=== PATIENT | female | born 1945 | race Caucasian/White ===

== ENCOUNTER 2018-03-28 11:04 | Emergency (ER) | payer OTHER ==
[2018-03-28 11:12] VITALS: BP 135/81; PULSE 70; TEMP 98.5; BMI 31.6
--- NOTE | 2018-03-28 11:22 | PDOC ---
History of Present Illness - General Chief Complaint: Bite Stated Complaint: CAT SCRATCH Time Seen by Provider: 03/28/18 11:12 - History of Present Illness Initial Comments: 03/28/18 11:35 Chief complaint: Cat scratch History of present illness: Patient was playing with her cat on Monday night, got scratched in the posterior right ankle. Blood was squirting from the puncture site but soon subsided. Today she has noted increased swelling around the puncture. However, she denies pain Review of systems: No fever/chills, pain with weightbearing, difficulty ambulating, or warmth of the extremity. In addition, there is no proximal pain or swelling and no distal numbness tingling pain or weakness Past medical history: On thyroid supplements. Otherwise no active medical problems including diabetes Social/family history reviewed and noncontributory Physical exam: Alert and oriented well-developed well-nourished no acute distress cheerful and cooperative Afebrile, vital signs normal Right ankle: There is a 1 mm healing puncture wound of the posterior ankle, mediolaterally. There is minimal tenderness and no warmth. However, there is mild edema and erythema surrounding the wound. There are no distal sensory or motor deficits. The findings do not extend to the foot or more proximally in the calf. Impression: Possible early wound infection due to cat scratch Plan: Warm compresses, rest and elevate, antibiotics. Close follow-up if no improvement one to 2 days. Fully ambulatory and in no pain or distress. Past History - Past Medical History Allergies/Adverse Reactions: Allergies Allergy/AdvReac Type Severity Reaction Status Date / Time codeine [Codeine] Allergy Mild Nausea Verified 03/28/18 11:05 Home Medications: Ambulatory Orders Levothyroxine [Synthroid -] 125 mcg PO DAILY 06/27/11 Amox-Tr/K Cl [Augmentin 875-125mg Tablet -] 1 tab PO BID #14 tablet 03/28/18 Anemia: Yes (MANY YEARS AGO) Asthma: No Cancer: Yes (CERVICAL) Cardiac Disorders: No CVA: No COPD: No CHF: No Dementia: No Diabetes: No GI Disorders: No Disorders: No HTN: No Hypercholesterolemia: Yes Liver Disease: No Seizures: No Thyroid Disease: Yes (HYPOTHYROIDISM) - Surgical History Abdominal Surgery: Yes (TOTAL RADICAL HYSTERECTOMY) Appendectomy: Yes Cardiac Surgery: No Cholecystectomy: Yes Lung Surgery: No Neurologic Surgery: No Orthopedic Surgery: No - Suicide/Smoking/Psychosocial Hx Smoking History: Current every day smoker Have you smoked in the past 12 months: Yes Number of Cigarettes Smoked Daily: 20 Information on smoking cessation initiated: Yes 'Breaking Loose' booklet given: 03/28/18 Hx Alcohol Use: No Drug/Substance Use Hx: No Substance Use Type: None Hx Substance Use Treatment: No *Physical Exam - Vital Signs Last Vital Signs Temp Pulse Resp BP Pulse Ox 98.5 F 70 18 135/81 100 03/28/18 11:05 03/28/18 11:05 03/28/18 11:05 03/28/18 11:05 03/28/18 11:05 *DC/Admit/Observation/Transfer Diagnosis at time of Disposition: Puncture wound - Discharge Dispostion Disposition: HOME Condition at time of disposition: Stable Decision to Admit order: No - Prescriptions Prescriptions: Amox-Tr/K Cl [Augmentin 875-125mg Tablet -] 1 tab PO BID #14 tablet - Referrals - Patient Instructions Printed Discharge Instructions: How to Care for a Domestic Animal Bite Additional Instructions: Rest and elevate the leg for several days until improvement. Limited standing and walking. Warm compresses and antibiotic as directed. Recheck in 24-48 hours if worse. Otherwise follow-up in one week with primary physician. - Post Discharge Activity
== END 2018-03-28 11:41 | disposition home or self-care (01) ==
LOC: FER 11:04
DX: S91.031A Puncture wound without foreign body, right ankle, initial encounter (principal); W55.01XA Bitten by cat, initial encounter; Y93.89 Activity, other specified; Y92.89 Other specified places as the place of occurrence of the external cause; E07.9 Disorder of thyroid, unspecified; Z85.41 Personal history of malignant neoplasm of cervix uteri; F17.210 Nicotine dependence, cigarettes, uncomplicated; E78.00 Pure hypercholesterolemia, unspecified; E03.9 Hypothyroidism, unspecified
CPT/HCPCS: 99281-25

== ENCOUNTER 2021-11-04 14:34 | Emergency (ER) | payer OTHER ==
[2021-11-04] MEDS ORDERED: LIDOCAINE VISCOUS 2% ORAL/TOP 15 ML UNIT-DOSE CUP MM ONE (15:20)
[2021-11-04 15:47] VITALS: BP 129/67; PULSE 82; TEMP 99.8; BMI 31.8
[2021-11-04] MEDS ORDERED: LIDOCAINE VISCOUS 2% ORAL/TOP 15 ML UNIT-DOSE CUP ONE (15:47)
[2021-11-04 17:22] LABS: HEMATOCRIT 37.1 % (32.4-45.2); HEMOGLOBIN 13.1 G/dL (10.7-15.3); MCH 32.1 pg (25.7-33.7); MCHC 35.3 g/dl (32.0-36.0); MEAN CELL VOLUME 91.1 fl (80-96); MEAN PLT VOLUME 8.7 fl (7.5-11.1); RBC 4.07 10^6/uL (3.60-5.2); WHITE BLOOD COUNT 6.2 10^3/uL (4.0-10.8)
[2021-11-04 17:37] LABS: ALBUMIN 3.7 g/dl (3.4-5.0); BILIRUBIN,TOTAL 0.7 mg/dl (0.2-1); CREATININE 0.7 mg/dl (0.55-1.3); TOT PROT 6.7 g/dl (6.4-8.2)
[2021-11-04 17:58] LABS: PLATELET ESTIMATE ADEQUATE
[2021-11-04] MEDS ORDERED: ALBUTEROL SO4 2.5/IPRATROPIUM 0.5 INH SOL 3 ML VIAL.NEB. NEB SCH (18:30)
[2021-11-04] MEDS ORDERED: ALBUTEROL SO4 2.5/IPRATROPIUM 0.5 INH SOL 3 ML VIAL.NEB. NEB ONE ×2 (18:52→19:28)
[2021-11-04] MEDS ORDERED: OSELTAMIVIR PHOSPHATE 75 MG CAPSULE PO ONE (20:43)
[2021-11-04] MEDS ORDERED: OSELTAMIVIR PHOSPHATE 75 MG CAPSULE ONE (20:44)
== END 2021-11-04 20:49 | disposition home or self-care (01) ==
LOC: FER 14:34
PROC: 3E0F7GC Introduction of Other Therapeutic Substance into Respiratory Tract, Via Natural or Artificial Opening (ICD-10-PCS; principal; 2021-11-04)
DX: J09.X2 Influenza due to identified novel influenza A virus with other respiratory manifestations (principal)
CPT/HCPCS: 0241U-QW; 36415; 71046-TC-FY; 80053; 84484; 85025; 93005; 99285-25

== ENCOUNTER 2023-09-24 15:52 | Emergency (ER) | payer OTHER ==
[2023-09-24] MEDS ORDERED: IBUPROFEN 400 MG TABLET (FP) PO ONE (16:10)
[2023-09-24] MEDS: IBUPROFEN 400 MG TABLET (FP) PO ONE (16:12)
[2023-09-24 16:15] VITALS: BP 140/67; PULSE 72; RESP 19; TEMP 99.5; BMI 30.1
== END 2023-09-24 17:23 | disposition home or self-care (01) ==
LOC: FER 15:52
DX: M25.561 Pain in right knee (principal); S89.91XA Unspecified injury of right lower leg, initial encounter; X50.1XXA Overexertion from prolonged static or awkward postures, initial encounter; Y93.E1 Activity, personal bathing and showering
CPT/HCPCS: 73562-TC-RT-FY; 99283-25

== ENCOUNTER 2023-11-27 20:48 | Emergency (ER) | payer OTHER ==
[2023-11-27 20:52] VITALS: BP 157/80; PULSE 95; RESP 18; TEMP 98.5; BMI 30.1
[2023-11-27 21:55] LABS: BASO % 0.4 % (0-2.0); EOS % 0.2 % (0-4.5); HEMATOCRIT 41.2 % (32.4-45.2); HEMOGLOBIN 13.8 GM/dL (10.7-15.3); LYMPH % 17.9 % (8-40); MCH 31.1 pg (25.7-33.7); MCHC 33.6 g/dl (32.0-36.0); MEAN CELL VOLUME 92.7 fl (80-96); MONO % 6.7 % (3.8-10.2); NEUT % 74.8 % (42.8-82.8); PLATELET COUNT 255 10^3/uL (134-434); RBC 4.44 M/mm3 (3.60-5.2); RDW 13.8 % (11.6-15.6); WHITE BLOOD COUNT 11.7 K/mm3 (4.0-10.0)
[2023-11-27 22:10] LABS: POTASSIUM 4.8 mmol/L (3.5-5.1)
[2023-11-27 22:13] LABS: ALBUMIN 3.6 g/dl (3.4-5.0); BLOOD UREA NITROGEN 21.7 mg/dL (7-18); CALCIUM 9.1 mg/dL (8.5-10.1)
[2023-11-27 22:16] LABS: CREATININE 0.9 mg/dL (0.55-1.3)
[2023-11-27 22:17] LABS: TOT PROT 7.1 g/dl (6.4-8.2)
[2023-11-27 22:18] LABS: BILIRUBIN,TOTAL 0.8 mg/dL (0.2-1)
[2023-11-27 22:34] LABS: INR 0.98 (0.83-1.09); PROTHROMBIN TIME (PATIENT) 11.3 SEC (9.7-13.0)
[2023-11-27 22:35] LABS: ACTIVATED PTT 30.4 SECONDS (25.2-36.5)
[2023-11-28 01:46] LABS: EPI CELLS 12 /uL (0-25.1); HYALINE CASTS 1 /uL (0-3.1); PH,URINE 5.5 (5.0-8.0); URINE APPEARANCE CLEAR; URINE BACTERIA 70 /uL (0-1359); URINE BILIRUBIN NEGATIVE (NEGATIVE); URINE COLOR YELLOW; URINE GLUCOSE (UA) NEGATIVE (NEGATIVE); URINE KETONE NEGATIVE (NEGATIVE); URINE LEUK ESTERASE NEGATIVE (NEGATIVE); URINE NITRITE NEGATIVE (NEGATIVE); URINE PROTEIN NEGATIVE (NEGATIVE); URINE RBC 19 /uL (0-23.9); URINE UROBILINOGEN 0.2 mg/dL (0.2-1.0); URINE WBC 22 /uL (0-25.8)
[2023-11-28] MEDS ORDERED: ACETAMINOPHEN 325 MG TABLET (FP) ONE (02:09)
[2023-11-28] MEDS: ACETAMINOPHEN 325 MG TABLET (FP) PO ONE (02:20)
== END 2023-11-28 02:24 | disposition home or self-care (01) ==
LOC: JER 20:48
DX: K62.5 Hemorrhage of anus and rectum (principal); R42 Dizziness and giddiness; R00.2 Palpitations; R10.9 Unspecified abdominal pain; G89.29 Other chronic pain; K64.4 Residual hemorrhoidal skin tags
CPT/HCPCS: 36415; 74177-TC; 80053; 81003; 82272; 83605; 83690; 84484; 85025; 85610; 85730; 86850; 86900; 86901; 87077; 87086; 93005; 93010; 99285-25

== ENCOUNTER 2024-01-25 04:32 | Day surgery (SDC) | payer OTHER ==
[2024-01-24 10:01] VITALS: BMI 29.9
[2024-01-25 09:14] VITALS: TEMP 97.6
[2024-01-25 11:32] VITALS: BP 131/76; PULSE 69; RESP 18
== END 2024-01-25 10:27 | disposition home or self-care (01) ==
LOC: JASU-ENDO 04:32
PROVIDERS: ATTEND Internal Medicine Gastroenterology
PROC: 0DJD8ZZ Inspection of Lower Intestinal Tract, Via Natural or Artificial Opening Endoscopic (ICD-10-PCS; principal; 2024-01-25 08:00)
DX: K57.30 Diverticulosis of large intestine without perforation or abscess without bleeding (principal); K64.8 Other hemorrhoids

== ENCOUNTER 2024-01-26 03:53 | Inpatient (IN) | payer OTHER ==
[2024-01-26] MEDS ORDERED: ACETAMINOPHEN INJECTION 100 ML IVPB ONE (04:13)
[2024-01-26] MEDS ORDERED: ONDANSETRON 4 MG/2 ML VIAL ONE (04:14)
[2024-01-26] MEDS ORDERED: FAMOTIDINE 20 MG/50 ML IVPB 20 MG/50 ML MG IVPB ONE (04:20)
[2024-01-26] MEDS: ACETAMINOPHEN 1000 MG/100 ML BAG IVPB ONE (04:26)
[2024-01-26] MEDS: SODIUM CHLORIDE 0.9% 500 ML INFUS.BAG IV ONE ×2 (04:26→06:29)
[2024-01-26] MEDS: FAMOTIDINE 20 MG/50 ML IVPB 20 MG/50 ML MG IVPB ONE (04:27)
[2024-01-26] MEDS: ONDANSETRON 4 MG/2 ML VIAL IVPUSH ONE (04:27)
[2024-01-26 05:16] LABS: INR 1.03 (0.83-1.09); PROTHROMBIN TIME (PATIENT) 11.6 SEC (9.7-13.0)
[2024-01-26 05:17] LABS: BASO % 0.1 % (0-2.0); HEMATOCRIT 39.5 % (32.4-45.2); HEMOGLOBIN 13.5 GM/dL (10.7-15.3); LYMPH % 8.5 % (8-40); MCH 31.8 pg (25.7-33.7); MCHC 34.2 g/dl (32.0-36.0); MEAN CELL VOLUME 93.1 fl (80-96); MONO % 3.1 % (3.8-10.2); NEUT % 88.3 % (42.8-82.8); PLATELET COUNT 274 10^3/uL (134-434); RBC 4.24 M/mm3 (3.60-5.2); RDW 13.7 % (11.6-15.6); WHITE BLOOD COUNT 14.5 K/mm3 (4.0-10.0)
[2024-01-26 05:18] LABS: ACTIVATED PTT 30.7 SECONDS (25.2-36.5)
[2024-01-26] MEDS ORDERED: MORPHINE SULFATE 2 MG/ML SYRINGE ONE ×2 (05:23→07:44)
[2024-01-26] MEDS: morphine CARPU-JECT 4 MG/1 ML DISP.SYRIN IVPUSH ONE (05:26)
[2024-01-26 05:27] LABS: LACTIC ACID 3.4 mmol/L (0.4-2.0)
[2024-01-26 05:29] LABS: POTASSIUM 4.1 mmol/L (3.5-5.1)
[2024-01-26 05:30] LABS: ALBUMIN 4.3 g/dl (3.4-5.0); BLOOD UREA NITROGEN 14.9 mg/dL (7-18); CALCIUM 9.8 mg/dL (8.5-10.1)
[2024-01-26 05:33] LABS: CREATININE 0.8 mg/dL (0.55-1.3)
[2024-01-26 05:36] LABS: TOT PROT 7.8 g/dl (6.4-8.2)
[2024-01-26] MEDS: morphine CARPU-JECT 2 MG/1 ML DISP.SYRIN IVPUSH ONE (07:47)
[2024-01-26] MEDS ORDERED: PIPERACILLIN/TAZOB 4.5 GM 4.5 GM/100 ML BAG IVPB ONE (10:24)
[2024-01-26] MEDS: PIPERACILLIN/TAZOB 4.5 GM 4.5 GM in DEXTROSE 5%-WATER 100 ML IVPB ONE (10:32)
[2024-01-26] MEDS ORDERED: PANTOPRAZOLE SODIUM 40 MG VIAL ONE (11:02)
[2024-01-26] MEDS: PANTOPRAZOLE SODIUM 40 MG VIAL IVPUSH ONE (11:11)
[2024-01-26] MEDS: ONDANSETRON 4 MG/2 ML VIAL IVPUSH PRN (14:56)
[2024-01-26] MEDS: ALBUTEROL SO4 HFA INHALER IH PRN (14:57)
[2024-01-26] MEDS: LACTATED RINGERS SOLUTION 1,000 ML/1,000 ML INFUS.BAG IV SCH (14:57)
[2024-01-26] MEDS: MAGNESIUM 1GM/D5W 100ML - 100 ML IVPB IVPB ONE (14:57)
[2024-01-26] MEDS: PANTOPRAZOLE SODIUM 80 MG in SODIUM CHLORIDE 100 ML IVPB SCH (14:59)
[2024-01-26] MEDS: PIPERACILLIN/TAZOB 4.5 GM 4.5 GM in DEXTROSE 5%-WATER 100 ML IVPB SCH (16:58)
[2024-01-26 19:28] LABS: EPI CELLS 2 /uL (0-25.1); HYALINE CASTS 1 /uL (0-3.1); PH,URINE 6.5 (5.0-8.0); URINE APPEARANCE CLEAR; URINE BACTERIA 58 /uL (0-1359); URINE BILIRUBIN NEGATIVE (NEGATIVE); URINE COLOR YELLOW; URINE GLUCOSE (UA) NEGATIVE (NEGATIVE); URINE KETONE TRACE (NEGATIVE); URINE LEUK ESTERASE NEGATIVE (NEGATIVE); URINE NITRITE NEGATIVE (NEGATIVE); URINE PROTEIN TRACE (NEGATIVE); URINE RBC 1 /uL (0-23.9); URINE UROBILINOGEN 0.2 mg/dL (0.2-1.0); URINE WBC 0 /uL (0-25.8)
[2024-01-26] MEDS ORDERED: PIPERACILLIN/TAZOB 4.5 GM 4.5 GM in DEXTROSE 5%-WATER 100 ML IVPB SCH (21:00)
[2024-01-26] MEDS ORDERED: PANTOPRAZOLE SODIUM 40 MG VIAL IVPUSH SCH (22:00)
[2024-01-26] MEDS ORDERED: PANTOPRAZOLE SODIUM 80 MG in SODIUM CHLORIDE 100 ML IVPB SCH (22:45)
[2024-01-26] MEDS: PANTOPRAZOLE SODIUM 160 MG in SODIUM CHLORIDE 290 ML IVPB SCH (22:57)
[2024-01-26] MEDS: ZOLPIDEM TARTRATE 5 MG TABLET PO PRN (22:57)
[2024-01-27] MEDS: LEVOTHYROXINE NA 112 MCG TABLET (FP) PO SCH (06:16)
[2024-01-27 08:39] LABS: BASO % 0.5 % (0-2.0); EOS % 0.4 % (0-4.5); HEMATOCRIT 32.4 % (32.4-45.2); HEMOGLOBIN 10.8 GM/dL (10.7-15.3); LYMPH % 12.5 % (8-40); MCH 31.2 pg (25.7-33.7); MCHC 33.5 g/dl (32.0-36.0); MEAN CELL VOLUME 93.3 fl (80-96); MEAN PLT VOLUME 8.3 fl (7.5-11.1); MONO % 6.7 % (3.8-10.2); NEUT % 79.9 % (42.8-82.8); PLATELET COUNT 188 10^3/uL (134-434); RBC 3.47 M/mm3 (3.60-5.2); RDW 13.5 % (11.6-15.6); WHITE BLOOD COUNT 11.7 K/mm3 (4.0-10.0)
[2024-01-27 09:01] LABS: POTASSIUM 3.4 mmol/L (3.5-5.1)
[2024-01-27 09:06] LABS: CALCIUM 8.7 mg/dL (8.5-10.1)
[2024-01-27 09:07] LABS: BLOOD UREA NITROGEN 13.4 mg/dL (7-18); MAGNESIUM 2.1 mg/dL (1.8-2.4)
[2024-01-27 09:08] LABS: ALBUMIN 2.9 g/dl (3.4-5.0)
[2024-01-27 09:10] LABS: CREATININE 0.7 mg/dL (0.55-1.3); PHOSPHOROUS 2.6 mg/dL (2.5-4.9)
[2024-01-27 09:12] LABS: BILIRUBIN,TOTAL 1.5 mg/dL (0.2-1)
[2024-01-27 09:14] LABS: TOT PROT 5.5 g/dl (6.4-8.2)
[2024-01-27] MEDS ORDERED: ACETAMINOPHEN 1000 MG/100 ML BAG IVPB PRN (12:52)
[2024-01-27] MEDS: PIPERACILLIN/TAZOB 3.375 GM 3.375 GM in DEXTROSE 5%-WATER - 50 ML IVPB SCH (17:26)
[2024-01-27] MEDS: SUCRALFATE 1 GM/10 ML UNIT DOSE CUPS PO SCH (17:27)
[2024-01-28] MEDS: LEVOTHYROXINE NA 112 MCG TABLET (FP) PO SCH (06:08)
[2024-01-28] MEDS: POTASSIUM CHLORIDE TABS 20 MEQ TABLET.ER (FP) PO ONE (09:38)
[2024-01-28] MEDS: PANTOPRAZOLE 40 MG TABLET PO SCH (12:43)
[2024-01-28 13:03] LABS: BASO % 0.7 % (0-2.0); EOS % 1.4 % (0-4.5); HEMATOCRIT 35.1 % (32.4-45.2); HEMOGLOBIN 12.1 GM/dL (10.7-15.3); LYMPH % 17.8 % (8-40); MCH 31.8 pg (25.7-33.7); MCHC 34.4 g/dl (32.0-36.0); MEAN CELL VOLUME 92.4 fl (80-96); MEAN PLT VOLUME 8.6 fl (7.5-11.1); MONO % 7.2 % (3.8-10.2); NEUT % 72.9 % (42.8-82.8); PLATELET COUNT 201 10^3/uL (134-434); RDW 13.4 % (11.6-15.6); WHITE BLOOD COUNT 9.7 K/mm3 (4.0-10.0)
[2024-01-28 13:10] VITALS: BMI 24.7
[2024-01-28 13:23] LABS: POTASSIUM 3.6 mmol/L (3.5-5.1)
[2024-01-28 13:25] LABS: CALCIUM 8.7 mg/dL (8.5-10.1)
[2024-01-28 13:26] LABS: ALBUMIN 3.2 g/dl (3.4-5.0); BLOOD UREA NITROGEN 9.6 mg/dL (7-18)
[2024-01-28 13:29] LABS: CREATININE 0.8 mg/dL (0.55-1.3)
[2024-01-28 13:30] LABS: BILIRUBIN,TOTAL 1.6 mg/dL (0.2-1)
[2024-01-28] MEDS: NITROGLYCERIN 2% OINTMENT - 1GM PACKET TD SCH (17:34)
[2024-01-28] MEDS ORDERED: NITROGLYCERIN 2% OINTMENT - 1GM PACKET TD SCH (18:00)
[2024-01-29] MEDS: PIPERACILLIN/TAZOB 3.375 GM 3.375 GM in DEXTROSE 5%-WATER - 50 ML IVPB ONE (01:26)
[2024-01-29 08:18] LABS: HEMATOCRIT 37.3 % (32.4-45.2); HEMOGLOBIN 12.9 GM/dL (10.7-15.3); MCH 31.7 pg (25.7-33.7); MCHC 34.4 g/dl (32.0-36.0); MEAN CELL VOLUME 92.1 fl (80-96); MEAN PLT VOLUME 8.6 fl (7.5-11.1); PLATELET COUNT 215 10^3/uL (134-434); RBC 4.05 M/mm3 (3.60-5.2); RDW 13.6 % (11.6-15.6); WHITE BLOOD COUNT 8.8 K/mm3 (4.0-10.0)
[2024-01-29 08:28] LABS: POTASSIUM 3.6 mmol/L (3.5-5.1)
[2024-01-29 08:31] LABS: CALCIUM 8.8 mg/dL (8.5-10.1)
[2024-01-29 08:32] LABS: MAGNESIUM 1.8 mg/dL (1.8-2.4)
[2024-01-29 08:35] LABS: CREATININE 0.7 mg/dL (0.55-1.3); PHOSPHOROUS 2.3 mg/dL (2.5-4.9)
[2024-01-29] MEDS: PIPERACILLIN/TAZOB 3.375 GM 3.375 GM in DEXTROSE 5%-WATER - 50 ML IVPB SCH (09:31)
[2024-01-29] MEDS ORDERED: FUROSEMIDE 40 MG/4 ML INJECTABLE VIAL IVPUSH ONE (11:15)
[2024-01-29] MEDS: FUROSEMIDE 40 MG/4 ML INJECTABLE VIAL IVPUSH SCH (11:52)
[2024-01-30 07:43] LABS: HEMATOCRIT 39.4 % (32.4-45.2); HEMOGLOBIN 13.4 GM/dL (10.7-15.3); MCH 31.4 pg (25.7-33.7); MEAN CELL VOLUME 92.2 fl (80-96); MEAN PLT VOLUME 8.3 fl (7.5-11.1); PLATELET COUNT 226 10^3/uL (134-434); RBC 4.28 M/mm3 (3.60-5.2); RDW 13.4 % (11.6-15.6)
[2024-01-30 08:27] LABS: POTASSIUM 3.4 mmol/L (3.5-5.1)
[2024-01-30 08:44] LABS: BLOOD UREA NITROGEN 7.7 mg/dL (7-18); CALCIUM 9.2 mg/dL (8.5-10.1); MAGNESIUM 1.8 mg/dL (1.8-2.4)
[2024-01-30 08:47] LABS: CREATININE 0.7 mg/dL (0.55-1.3); PHOSPHOROUS 3.1 mg/dL (2.5-4.9)
[2024-01-30] MEDS: POTASSIUM CHLORIDE TABS 20 MEQ TABLET.ER (FP) PO ONE (09:47)
[2024-01-30] MEDS: ACETAMINOPHEN 1000 MG/100 ML BAG IVPB ONE (16:03)
[2024-01-30] MEDS: MAG HYDROX/AL HYDROX/SIMETH 30 ML UNIT-DOSE CUP PO ONE (18:25)
[2024-01-31 01:59] VITALS: RESP 18
[2024-01-31 09:18] LABS: HEMATOCRIT 37.8 % (32.4-45.2); HEMOGLOBIN 12.9 GM/dL (10.7-15.3); MCH 31.4 pg (25.7-33.7); MCHC 34.2 g/dl (32.0-36.0); MEAN CELL VOLUME 91.8 fl (80-96); MEAN PLT VOLUME 8.4 fl (7.5-11.1); PLATELET COUNT 235 10^3/uL (134-434); RBC 4.11 M/mm3 (3.60-5.2); RDW 13.3 % (11.6-15.6)
[2024-01-31 09:33] LABS: POTASSIUM 3.4 mmol/L (3.5-5.1)
[2024-01-31 09:38] LABS: BLOOD UREA NITROGEN 9.1 mg/dL (7-18); CALCIUM 9.4 mg/dL (8.5-10.1); MAGNESIUM 1.9 mg/dL (1.8-2.4)
[2024-01-31 09:41] LABS: CREATININE 0.7 mg/dL (0.55-1.3); PHOSPHOROUS 2.8 mg/dL (2.5-4.9)
[2024-01-31 15:10] VITALS: BP 119/64; PULSE 75; TEMP 99.1
== END 2024-01-31 16:37 | disposition home or self-care (01) | DRG 392 ==
LOC: JER 03:53 → JERBED 10:12 → J4S 13:36 → OBSVTOIN 01-27 12:54
PROVIDERS: ADMIT Internal Medicine; ATTEND Internal Medicine
PROC: 0DB68ZX Excision of Stomach, Via Natural or Artificial Opening Endoscopic, Diagnostic (ICD-10-PCS; principal; 2024-01-26 11:30)
DX: K20.90 Esophagitis, unspecified without bleeding (principal); J98.11 Atelectasis; K57.30 Diverticulosis of large intestine without perforation or abscess without bleeding; I10 Essential (primary) hypertension; J44.9 Chronic obstructive pulmonary disease, unspecified; E03.9 Hypothyroidism, unspecified; E78.5 Hyperlipidemia, unspecified; R09.02 Hypoxemia; K44.9 Diaphragmatic hernia without obstruction or gangrene; K29.70 Gastritis, unspecified, without bleeding; R10.13 Epigastric pain; M25.561 Pain in right knee; N28.1 Cyst of kidney, acquired; E87.6 Hypokalemia; G47.00 Insomnia, unspecified; D72.829 Elevated white blood cell count, unspecified; Z87.11 Personal history of peptic ulcer disease; Z85.41 Personal history of malignant neoplasm of cervix uteri
CPT/HCPCS: 36415; 71045-TC-FY; 74177-TC; 80048; 80053; 81003; 82550; 83605; 83690; 83735; 84100; 84484; 85025; 85027; 85610; 85730; 86850; 86900; 86901; 87635; 88305-TC; 88342-TC; 93005; 93010; 94010; 94761; 97116-GP; 97161-GP; 99285-25; G0378; J0131

== ENCOUNTER 2024-03-13 17:20 | Emergency (ER) | payer OTHER ==
[2024-03-13 17:26] VITALS: BP 119/68; PULSE 72; RESP 16; TEMP 98.6; BMI 27.6
[2024-03-13] MEDS ORDERED: ACETAMINOPHEN 500 MG TABLET (FP) ONE (17:58)
[2024-03-13] MEDS: ACETAMINOPHEN 500 MG TABLET (FP) PO ONE (18:00)
[2024-03-13] MEDS ORDERED: LIDOCAINE 5% TOPICAL PATCH ONE (18:30)
[2024-03-13] MEDS: LIDOCAINE 5% TOPICAL PATCH TP ONE (18:33)
[2024-03-13] MEDS ORDERED: LIDOCAINE PATCH REMOVAL MC SCH (22:00)
== END 2024-03-13 18:59 | disposition home or self-care (01) ==
LOC: FER 17:20
DX: M17.11 Unilateral primary osteoarthritis, right knee (principal)
CPT/HCPCS: 73562-TC-RT-FY; 99283-25

== ENCOUNTER 2024-04-16 06:15 | Inpatient (IN) | payer OTHER ==
[2024-04-15 11:48] VITALS: BMI 28.8
[2024-04-16] MEDS ORDERED: VANCOMYCIN 1,000 MG VIAL (RESTRICTED TO ID ONLY) ONE (07:16)
[2024-04-16] MEDS ORDERED: BUPIVACAINE HCL/PF 0.5% (5 MG/ML) 30 ML VIAL IJ ONE (07:36)
[2024-04-16] MEDS ORDERED: MIDAZOLAM HCL 2 MG/2 ML SINGLE DOSE VIAL ONE ×2 (07:36→08:04)
[2024-04-16] MEDS ORDERED: DEXAMETHASONE SOD PHOSPHATE 10 MG/1 ML VIAL ONE (07:36)
[2024-04-16] MEDS ORDERED: BUPIVACAINE HCL/PF 0.5% (5MG/ML) 10 ML VIAL ONE (07:37)
[2024-04-16] MEDS ORDERED: MAG HYDROX/AL HYDROX/SIMETH 30 ML UNIT-DOSE CUP PO PRN (07:51)
[2024-04-16] MEDS ORDERED: PHENYLEPHRINE HCL 10 MG/1 ML SINGLE DOSE VIAL ONE (08:05)
[2024-04-16] MEDS ORDERED: PROPOFOL 20 ML ONE ×2 (08:24→09:14)
[2024-04-16] MEDS ORDERED: SUCCINYLCHOLINE CHLORIDE 200 MG/10 ML SYRINGE ONE (08:24)
[2024-04-16] MEDS ORDERED: BUPIVICAINE 0.25%/MORPH PF/KETOROLAC - 51ML DISP.SYRINGE IA ONE (09:34)
[2024-04-16] MEDS ORDERED: TRANEXAMIC ACID 1000 MG/10 ML VIAL ONE (09:37)
[2024-04-16] MEDS ORDERED: oxyCODONE HCL 5 MG TABLET PO PRN (10:28)
[2024-04-16] MEDS ORDERED: ALBUTEROL SO4 HFA INHALER IH PRN (10:51)
[2024-04-16] MEDS ORDERED: ONDANSETRON 4 MG/2 ML VIAL ONE (11:10)
[2024-04-16] MEDS: ONDANSETRON 4 MG/2 ML VIAL IVPUSH PRN ×2 (11:13→18:32)
[2024-04-16] MEDS ORDERED: ACETAMINOPHEN INJECTION 100 ML ONE (11:19)
[2024-04-16] MEDS: ACETAMINOPHEN 1000 MG/100 ML BAG IVPB ONE (11:28)
[2024-04-16] MEDS: SENNOSIDES/DOCUSATE COMBO (SENNA PLUS) TABLET (UD) PO SCH (12:31)
[2024-04-16] MEDS: PANTOPRAZOLE 20 MG TABLET PO SCH (12:31)
[2024-04-16] MEDS: LACTATED RINGERS SOLUTION 1,000 ML IV SCH ×2 (12:31→12:32)
[2024-04-16] MEDS: MULTIVITAMINS (DAILY MVI) TABLET (FP) PO SCH (12:31)
[2024-04-16] MEDS: oxyCODONE HCL 5 MG TABLET PO PRN (16:04)
[2024-04-16] MEDS ORDERED: CEFAZOLIN 2 GM/D5W 2 GM/50 ML ML IVPB SCH (16:30)
[2024-04-16] MEDS: CEFAZOLIN SODIUM 2 GM in DEXTROSE 5%-WATER 100 ML IVPB SCH (16:34)
[2024-04-16 17:59] LABS: HIV INTERPRETATION NEGATIVE (NEGATIVE)
[2024-04-16] MEDS: oxyCODONE HCL 5 MG TABLET PO ONE (18:50)
[2024-04-16] MEDS: ZOLPIDEM TARTRATE 5 MG TABLET PO PRN (21:45)
[2024-04-16] MEDS: ROSUVASTATIN CA 20 MG TABLET PO SCH (21:46)
[2024-04-17] MEDS: LEVOTHYROXINE NA 100 MCG TABLET (FP) PO SCH (06:03)
[2024-04-17 07:52] LABS: HEMOGLOBIN 10.9 G/dL (10.7-15.3); MCH 29.8 pg (25.7-33.7); MCHC 30.3 g/dl (32.0-36.0); MEAN CELL VOLUME 98.4 fl (80-96); MEAN PLT VOLUME 8.8 fl (7.5-11.1); RBC 3.66 10^6/uL (3.60-5.2); RDW 14.3 % (11.6-15.6); WHITE BLOOD COUNT 13.7 10^3/uL (4.0-10.8)
[2024-04-17 08:07] LABS: CALCIUM 9.2 mg/dl (8.5-10.1); CREATININE 0.7 mg/dl (0.6-1.3); POTASSIUM 4.7 mmol/L (3.5-5.1)
[2024-04-17] MEDS: ASPIRIN COATED 81 MG TABLET.EC PO SCH (09:37)
[2024-04-17] MEDS ORDERED: PATIENT'S OWN MEDICATION (NON-FORMULARY) (Multivit-Min/Iron/Folic/Lutein [Centrum Silver W PO SCH (10:00)
[2024-04-17] MEDS ORDERED: ACETAMINOPHEN 1000 MG/100 ML BAG IVPB PRN (14:02)
[2024-04-18 09:40] LABS: CALCIUM 8.9 mg/dl (8.5-10.1); CREATININE 0.6 mg/dl (0.6-1.3); MAGNESIUM 1.6 mg/dL (1.8-2.4); PHOSPHOROUS 2.9 (2.5-4.9); POTASSIUM 4.6 mmol/L (3.5-5.1)
[2024-04-18 10:19] LABS: BASO % 0.3 % (0-2.0); EOS % 0.4 % (0-4.5); HEMATOCRIT 32.5 % (32.4-45.2); HEMOGLOBIN 10.6 GM/dL (10.7-15.3); LYMPH % 8.5 % (8-40); MCH 30.8 pg (25.7-33.7); MCHC 32.5 g/dl (32.0-36.0); MEAN CELL VOLUME 94.8 fl (80-96); MEAN PLT VOLUME 9.1 fl (7.5-11.1); MONO % 9.9 % (3.8-10.2); NEUT % 80.9 % (42.8-82.8); PLATELET COUNT 204 10^3/uL (134-434); RBC 3.43 M/mm3 (3.60-5.2); RDW 14.1 % (11.6-15.6); WHITE BLOOD COUNT 12.3 K/mm3 (4.0-10.0)
[2024-04-18] MEDS: MAGNESIUM OXIDE 400 MG TABLET (FP) PO ONE (11:03)
[2024-04-18] MEDS ORDERED: ACETAMINOPHEN 1000 MG/100 ML BAG IVPB PRN (14:28)
[2024-04-18] MEDS: ACETAMINOPHEN 1000 MG/100 ML BAG IVPB PRN (15:05)
[2024-04-19 11:20] VITALS: RESP 18
[2024-04-19 12:28] LABS: CALCIUM 8.9 mg/dl (8.5-10.1); CREATININE 0.7 mg/dl (0.6-1.3); POTASSIUM 4.3 mmol/L (3.5-5.1)
[2024-04-19 13:42] LABS: BASO % 0.2 % (0-2.0); EOS % 0.3 % (0-4.5); HEMATOCRIT 30.8 % (32.4-45.2); LYMPH % 6.8 % (8-40); MCH 30.5 pg (25.7-33.7); MCHC 32.6 g/dl (32.0-36.0); MEAN CELL VOLUME 93.7 fl (80-96); MEAN PLT VOLUME 9.3 fl (7.5-11.1); MONO % 7.8 % (3.8-10.2); NEUT % 84.9 % (42.8-82.8); PLATELET COUNT 201 10^3/uL (134-434); RBC 3.28 M/mm3 (3.60-5.2); RDW 14.4 % (11.6-15.6); WHITE BLOOD COUNT 15.1 K/mm3 (4.0-10.0)
[2024-04-19] MEDS: ACETAMINOPHEN 1000 MG/100 ML BAG IVPB PRN (14:11)
[2024-04-19 14:22] VITALS: BP 114/57; PULSE 83; TEMP 100.1
[2024-04-19] MEDS: AMOX TR/POT CLAV 875MG/125MG TABLETS (FP) PO ONE (15:26)
== END 2024-04-19 16:16 | disposition home or self-care (01) | DRG 470 ==
LOC: FASUSAT 06:15 → FM/S 06:15 → SUATTDRO 06:15 → EDSTATUS 10:00 → FASUSAT 12:02 → FM/S 12:02
PROVIDERS: ADMIT Internal Medicine; ATTEND Internal Medicine
PROC: 8E0Y0CZ Robotic Assisted Procedure of Lower Extremity, Open Approach (ICD-10-PCS; 2024-04-16)
PROC: 0SRC0JA Replacement of Right Knee Joint with Synthetic Substitute, Uncemented, Open Approach (ICD-10-PCS; principal; 2024-04-16 08:45)
DX: M17.11 Unilateral primary osteoarthritis, right knee (principal); D64.9 Anemia, unspecified; R42 Dizziness and giddiness; R53.83 Other fatigue; I95.9 Hypotension, unspecified; E03.9 Hypothyroidism, unspecified
CPT/HCPCS: 20985; 27447; C1776; 36415; 73560-TC-RT-FY; 80048; 81003; 81015; 83735; 84100; 84460; 85025; 85027; 86803; 87340; 87389; 88305-TC; 88311-TC; 94760; 97010-GP; 97116-GP; 97162-GP; J0131; J1100

== ENCOUNTER 2024-06-01 23:56 | Inpatient (IN) | payer OTHER ==
[2024-06-02 00:01] VITALS: BMI 30.1
[2024-06-02] MEDS ORDERED: ONDANSETRON 4 MG/2 ML VIAL ONE (00:50)
[2024-06-02] MEDS ORDERED: FAMOTIDINE 20 MG/50 ML IVPB 20 MG/50 ML MG IVPB ONE (00:50)
[2024-06-02] MEDS: ONDANSETRON 4 MG/2 ML VIAL IVPUSH ONE (01:12)
[2024-06-02] MEDS: FAMOTIDINE 20 MG/50 ML IVPB 20 MG/50 ML MG IVPB ONE (01:12)
[2024-06-02] MEDS ORDERED: PANTOPRAZOLE SODIUM 40 MG VIAL ONE (01:14)
[2024-06-02 01:17] LABS: BASO % 1.2 % (0-2.0); EOS % 0.2 % (0-4.5); HEMOGLOBIN 11.6 GM/dL (10.7-15.3); LYMPH % 6.3 % (8-40); MCHC 32.1 g/dl (32.0-36.0); MEAN CELL VOLUME 93.5 fl (80-96); MEAN PLT VOLUME 8.5 fl (7.5-11.1); MONO % 2.2 % (3.8-10.2); NEUT % 90.1 % (42.8-82.8); PLATELET COUNT 293 10^3/uL (134-434); RBC 3.86 M/mm3 (3.60-5.2); WHITE BLOOD COUNT 14.4 K/mm3 (4.0-10.0)
[2024-06-02] MEDS: PANTOPRAZOLE SODIUM 40 MG VIAL IVPUSH ONE (01:27)
[2024-06-02 01:33] LABS: POTASSIUM 3.8 mmol/L (3.5-5.1)
[2024-06-02 01:35] LABS: ALBUMIN 4.2 g/dl (3.4-5.0); CALCIUM 9.6 mg/dL (8.5-10.1)
[2024-06-02 01:36] LABS: BLOOD UREA NITROGEN 15.3 mg/dL (7-18); MAGNESIUM 1.8 mg/dL (1.8-2.4)
[2024-06-02 01:39] LABS: CREATININE 0.7 mg/dL (0.55-1.3)
[2024-06-02 01:40] LABS: BILIRUBIN,TOTAL 1.3 mg/dL (0.2-1); TOT PROT 7.7 g/dl (6.4-8.2)
[2024-06-02] MEDS ORDERED: ACETAMINOPHEN INJECTION 100 ML ONE ×2 (01:46→02:16)
[2024-06-02] MEDS ORDERED: METOCLOPRAMIDE HCL INJECTION 10 MG/2 ML VIAL ONE (01:46)
[2024-06-02] MEDS: METOCLOPRAMIDE HCL INJECTION 10 MG/2 ML VIAL IVPUSH ONE (01:58)
[2024-06-02] MEDS: ACETAMINOPHEN 1000 MG/100 ML BAG IVPB ONE (02:21)
[2024-06-02] MEDS ORDERED: hydrALAZINE HCL 20 MG/ML VIAL IVPUSH PRN ×2 (02:57→08:43)
[2024-06-02 03:02] LABS: INR 1.05 (0.83-1.09); PROTHROMBIN TIME (PATIENT) 11.9 SEC (9.7-13.0)
[2024-06-02 03:05] LABS: ACTIVATED PTT 28.5 SECONDS (25.2-36.5)
[2024-06-02] MEDS ORDERED: MORPHINE SULFATE 2 MG/ML SYRINGE ONE (04:04)
[2024-06-02] MEDS: MORPHINE SULFATE 2 MG/ML SYRINGE IVPUSH PRN (04:14)
[2024-06-02] MEDS: TRIMETHOBENZAMIDE HCL 200MG/2ML INJ IM PRN ×2 (04:47→10:52)
[2024-06-02 09:12] LABS: EPI CELLS 10 /uL (0-25.1); HYALINE CASTS 1 /uL (0-3.1); PH,URINE 6.5 (5.0-8.0); URINE APPEARANCE CLEAR; URINE BACTERIA 56 /uL (0-1359); URINE BILIRUBIN NEGATIVE (NEGATIVE); URINE COLOR YELLOW; URINE GLUCOSE (UA) NEGATIVE (NEGATIVE); URINE KETONE 3+ (NEGATIVE); URINE LEUK ESTERASE NEGATIVE (NEGATIVE); URINE NITRITE NEGATIVE (NEGATIVE); URINE PROTEIN 1+ (NEGATIVE); URINE RBC 72 /uL (0-23.9); URINE UROBILINOGEN 0.2 mg/dL (0.2-1.0); URINE WBC 28 /uL (0-25.8)
[2024-06-02] MEDS: DEXTROSE 5%-NORMAL SALINE 1,000 ML IV SCH (09:36)
[2024-06-02] MEDS: FAMOTIDINE 20 MG/50 ML IVPB 20 MG/50 ML MG IVPB SCH (09:37)
[2024-06-02] MEDS: PANTOPRAZOLE SODIUM 40 MG VIAL IVPUSH SCH (09:43)
[2024-06-02] MEDS: LEVOTHYROXINE SODIUM 100 MCG 5 ML VIAL IVPUSH SCH (09:44)
[2024-06-02] MEDS ORDERED: PANTOPRAZOLE SODIUM 40 MG VIAL IVPUSH SCH (10:00)
[2024-06-02] MEDS ORDERED: TRIMETHOBENZAMIDE HCL 200MG/2ML INJ IM PRN ×2 (10:26→10:46)
[2024-06-02] MEDS: MINERAL OIL ENEMA 133 ML ENEMA RC ONE (18:09)
[2024-06-02] MEDS: POLYETHYLENE GLYCOL (HEALTHYLAX) 3350 17 GM PACKET PO SCH (18:29)
[2024-06-02] MEDS: SENNOSIDES 8.6MG TABLET (FP) PO SCH (21:29)
[2024-06-02] MEDS: ACETAMINOPHEN 1000 MG/100 ML BAG IVPB PRN (23:21)
[2024-06-03] MEDS: MAG HYDROX/AL HYDROX/SIMETH 30 ML UNIT-DOSE CUP PO ONE (04:14)
[2024-06-03 10:26] LABS: HEMATOCRIT 36.1 % (32.4-45.2); HEMOGLOBIN 11.9 GM/dL (10.7-15.3); MCH 30.5 pg (25.7-33.7); MCHC 32.9 g/dl (32.0-36.0); MEAN CELL VOLUME 92.7 fl (80-96); MEAN PLT VOLUME 8.3 fl (7.5-11.1); PLATELET COUNT 271 10^3/uL (134-434); RDW 14.8 % (11.6-15.6); WHITE BLOOD COUNT 11.7 K/mm3 (4.0-10.0)
[2024-06-03] MEDS: hydrALAZINE HCL 20 MG/ML VIAL IVPB PRN (10:42)
[2024-06-03 10:44] LABS: POTASSIUM 3.8 mmol/L (3.5-5.1)
[2024-06-03 10:47] LABS: ALBUMIN 3.7 g/dl (3.4-5.0); CALCIUM 9.4 mg/dL (8.5-10.1)
[2024-06-03 10:48] LABS: MAGNESIUM 1.9 mg/dL (1.8-2.4)
[2024-06-03 10:50] LABS: CREATININE 0.6 mg/dL (0.55-1.3); PHOSPHOROUS 2.3 mg/dL (2.5-4.9)
[2024-06-03 10:52] LABS: BILIRUBIN,TOTAL 1.3 mg/dL (0.2-1); TOT PROT 7.1 g/dl (6.4-8.2)
[2024-06-03] MEDS: LORazepam 2 MG/ML SDV VIAL IVPUSH ONE (11:55)
[2024-06-03] MEDS ORDERED: LORazepam 0.5 MG TABLET PO PRN (14:44)
[2024-06-03 15:06] LABS: BILIRUBIN,DIRECT 0.3 mg/dL (0.0-0.2)
[2024-06-03] MEDS: METOCLOPRAMIDE HCL 10 MG TABLET (FP) PO ONE (18:50)
[2024-06-03] MEDS ORDERED: DEXTROSE 50%-WATER 25 GM/50 ML DISP.SYRIN IVPUSH PRN (19:12)
[2024-06-03] MEDS: LORazepam 0.5 MG TABLET PO PRN (20:27)
[2024-06-04] MEDS: NAPH,MB-DB/K PH,MBDB POWDER PACKET PO ONE (00:22)
[2024-06-04] MEDS: MELATONIN 5 MG TABLETS PO PRN (00:22)
[2024-06-04 10:04] LABS: HEMATOCRIT 38.5 % (32.4-45.2); HEMOGLOBIN 12.7 GM/dL (10.7-15.3); MCH 30.2 pg (25.7-33.7); MCHC 32.9 g/dl (32.0-36.0); MEAN CELL VOLUME 91.6 fl (80-96); MEAN PLT VOLUME 8.3 fl (7.5-11.1); PLATELET COUNT 288 10^3/uL (134-434); RDW 14.1 % (11.6-15.6); WHITE BLOOD COUNT 11.3 K/mm3 (4.0-10.0)
[2024-06-04 10:24] LABS: POTASSIUM 3.8 mmol/L (3.5-5.1)
[2024-06-04 10:28] LABS: BLOOD UREA NITROGEN 14.3 mg/dL (7-18); MAGNESIUM 1.8 mg/dL (1.8-2.4)
[2024-06-04 10:30] LABS: CALCIUM 9.3 mg/dL (8.5-10.1)
[2024-06-04 10:31] LABS: CREATININE 0.6 mg/dL (0.55-1.3)
[2024-06-04] MEDS: PEG 3350/NA SULF BICARB CL/KCL 4000 ML SOLN.RECON PO ONE (11:14)
[2024-06-04] MEDS ORDERED: SODIUM CHLORIDE 1,000 ML IV SCH (17:15)
[2024-06-04] MEDS: SODIUM CHLORIDE 1,000 ML IV SCH (17:50)
[2024-06-05 09:42] LABS: HEMATOCRIT 39.6 % (32.4-45.2); MCH 30.3 pg (25.7-33.7); MEAN CELL VOLUME 91.8 fl (80-96); PLATELET COUNT 312 10^3/uL (134-434); RBC 4.31 M/mm3 (3.60-5.2); RDW 14.5 % (11.6-15.6); WHITE BLOOD COUNT 10.8 K/mm3 (4.0-10.0)
[2024-06-05] MEDS: PANTOPRAZOLE SODIUM 40 MG VIAL IVPUSH SCH (10:04)
[2024-06-05] MEDS: SUCRALFATE 1 GM/10 ML UNIT DOSE CUPS PO SCH (10:05)
[2024-06-05 10:09] LABS: CALCIUM 8.9 mg/dL (8.5-10.1)
[2024-06-05 10:10] LABS: ALBUMIN 3.6 g/dl (3.4-5.0); BLOOD UREA NITROGEN 16.3 mg/dL (7-18); MAGNESIUM 1.6 mg/dL (1.8-2.4)
[2024-06-05 10:12] LABS: CREATININE 0.6 mg/dL (0.55-1.3)
[2024-06-05 10:13] LABS: PHOSPHOROUS 2.7 mg/dL (2.5-4.9)
[2024-06-05 10:14] LABS: TOT PROT 6.8 g/dl (6.4-8.2)
[2024-06-05] MEDS: SUCRALFATE 1 GM TABLET (FP) PO ONE (10:14)
[2024-06-05] MEDS ORDERED: ZOLPIDEM TARTRATE 5 MG TABLET PO PRN (11:03)
[2024-06-05] MEDS: MAGNESIUM 2GM/50ML STERILE WATER IVPB IVPB ONE (11:04)
[2024-06-05] MEDS: KCL 10 MEQ IVPB 10 MEQ/100 ML INFUS.BAG IVPB SCH (11:04)
[2024-06-05] MEDS: POTASSIUM CHLORIDE ORAL LIQUID 20 MEQ/15 ML PO ONE (11:04)
[2024-06-05] MEDS: SODIUM CHLORIDE 1,000 ML IV SCH (16:55)
[2024-06-05] MEDS: MELATONIN 5 MG TABLETS PO PRN (21:07)
[2024-06-05 22:18] LABS: POTASSIUM 3.6 mmol/L (3.5-5.1)
[2024-06-06] MEDS: HEPARIN NA (PORCINE) 5,000 UNITS/ML 1ML VIAL SQ SCH (00:33)
[2024-06-06] MEDS: ACETAMINOPHEN 1000 MG/100 ML BAG IVPB ONE (00:33)
[2024-06-06 09:56] LABS: HEMATOCRIT 37.7 % (32.4-45.2); HEMOGLOBIN 12.2 GM/dL (10.7-15.3); MCHC 32.4 g/dl (32.0-36.0); MEAN CELL VOLUME 92.5 fl (80-96); PLATELET COUNT 264 10^3/uL (134-434); RBC 4.07 M/mm3 (3.60-5.2); RDW 14.4 % (11.6-15.6); WHITE BLOOD COUNT 8.4 K/mm3 (4.0-10.0)
[2024-06-06 10:14] LABS: POTASSIUM 3.4 mmol/L (3.5-5.1)
[2024-06-06 10:23] LABS: BLOOD UREA NITROGEN 13.5 mg/dL (7-18); CALCIUM 8.7 mg/dL (8.5-10.1)
[2024-06-06 10:26] LABS: CREATININE 0.5 mg/dL (0.55-1.3); PHOSPHOROUS 3.1 mg/dL (2.5-4.9)
[2024-06-06 11:38] LABS: ALBUMIN 3.2 g/dl (3.4-5.0)
[2024-06-06 11:41] LABS: BILIRUBIN,DIRECT 0.4 mg/dL (0.0-0.2)
[2024-06-06 11:43] LABS: BILIRUBIN,TOTAL 1.7 mg/dL (0.2-1); TOT PROT 6.1 g/dl (6.4-8.2)
[2024-06-06] MEDS: ACETAMINOPHEN 325 MG TABLET (FP) PO PRN (12:01)
[2024-06-06] MEDS: FLU VACCINE (FLULAVAL) PF 45 MCG/0.5 ML SYRINGE 2024-2025 IM ONE (12:38)
[2024-06-06] MEDS: POTASSIUM CHLORIDE ORAL LIQUID 20 MEQ/15 ML PO ONE (13:14)
[2024-06-06] MEDS ORDERED: ACETAMINOPHEN 650 MG/20.3 ML ORAL SOLUTION (CUPS) PO PRN (15:56)
[2024-06-06] MEDS: hydrOXYzine PAMOATE 25 MG CAPSULE (FP) PO PRN (20:32)
[2024-06-07] MEDS: PYRIDOXINE HCL (B-6) 50 MG TABLET (FP) PO SCH (10:25)
[2024-06-07 12:34] LABS: HEMOGLOBIN 12.5 GM/dL (10.7-15.3); MCH 30.4 pg (25.7-33.7); MEAN CELL VOLUME 92.2 fl (80-96); MEAN PLT VOLUME 7.7 fl (7.5-11.1); PLATELET COUNT 269 10^3/uL (134-434); RBC 4.12 M/mm3 (3.60-5.2); RDW 14.5 % (11.6-15.6); WHITE BLOOD COUNT 8.1 K/mm3 (4.0-10.0)
[2024-06-07 12:57] LABS: POTASSIUM 3.7 mmol/L (3.5-5.1)
[2024-06-07 13:08] LABS: BLOOD UREA NITROGEN 10.7 mg/dL (7-18); MAGNESIUM 1.9 mg/dL (1.8-2.4)
[2024-06-07 13:11] LABS: CREATININE 0.6 mg/dL (0.55-1.3)
[2024-06-07] MEDS: AMINO ACIDS/PROTEIN HYDROLYS 30 ML LIQUID.PKT PO SCH (17:14)
[2024-06-07] MEDS: ACETAMINOPHEN 650 MG/20.3 ML ORAL SOLUTION (CUPS) PO PRN (18:22)
[2024-06-07] MEDS ORDERED: ACETAMINOPHEN 650 MG/20.3 ML ORAL SOLUTION (CUPS) PO PRN (18:50)
[2024-06-07] MEDS: traMADol HCL 50 MG TABLET PO PRN (18:54)
[2024-06-08 10:34] VITALS: RESP 18
[2024-06-08 11:09] LABS: POTASSIUM 3.4 mmol/L (3.5-5.1)
[2024-06-08 11:25] LABS: ALBUMIN 3.1 g/dl (3.4-5.0); BLOOD UREA NITROGEN 18.9 mg/dL (7-18); CALCIUM 8.9 mg/dL (8.5-10.1); MAGNESIUM 1.6 mg/dL (1.8-2.4)
[2024-06-08 11:27] LABS: CREATININE 0.9 mg/dL (0.55-1.3)
[2024-06-08 11:29] LABS: PHOSPHOROUS 3.5 mg/dL (2.5-4.9)
[2024-06-08 11:30] LABS: BILIRUBIN,TOTAL 1.4 mg/dL (0.2-1); TOT PROT 5.8 g/dl (6.4-8.2)
[2024-06-08] MEDS: POTASSIUM CHLORIDE ORAL LIQUID 20 MEQ/15 ML PO ONE (15:41)
[2024-06-08] MEDS: MAGNESIUM SULF 50% (8.12 MEQ/2 ML-1 GM VIAL) IVPB ONE (15:44)
[2024-06-08] MEDS: hydrOXYzine PAMOATE 25 MG CAPSULE (FP) PO PRN (20:26)
[2024-06-09] MEDS: PANTOPRAZOLE 40 MG TABLET PO SCH (09:37)
[2024-06-09 10:46] LABS: BASO % 0.7 % (0-2.0); EOS % 1.7 % (0-4.5); HEMATOCRIT 35.7 % (32.4-45.2); HEMOGLOBIN 12.2 GM/dL (10.7-15.3); LYMPH % 19.9 % (8-40); MCH 31.3 pg (25.7-33.7); MCHC 34.1 g/dl (32.0-36.0); MEAN PLT VOLUME 7.9 fl (7.5-11.1); MONO % 8.2 % (3.8-10.2); NEUT % 69.5 % (42.8-82.8); PLATELET COUNT 236 10^3/uL (134-434); RBC 3.88 M/mm3 (3.60-5.2); RDW 14.9 % (11.6-15.6); WHITE BLOOD COUNT 8.4 K/mm3 (4.0-10.0)
[2024-06-09 10:47] LABS: HEMATOCRIT 35.8 % (32.4-45.2); HEMOGLOBIN 12.3 GM/dL (10.7-15.3); MCH 31.5 pg (25.7-33.7); MCHC 34.3 g/dl (32.0-36.0); MEAN CELL VOLUME 91.9 fl (80-96); MEAN PLT VOLUME 7.9 fl (7.5-11.1); PLATELET COUNT 245 10^3/uL (134-434); RDW 14.6 % (11.6-15.6); WHITE BLOOD COUNT 8.3 K/mm3 (4.0-10.0)
[2024-06-09 11:06] LABS: POTASSIUM 4.1 mmol/L (3.5-5.1)
[2024-06-09 11:10] LABS: ALBUMIN 3.2 g/dl (3.4-5.0); BLOOD UREA NITROGEN 20.3 mg/dL (7-18)
[2024-06-09 11:13] LABS: CREATININE 0.8 mg/dL (0.55-1.3)
[2024-06-09 11:15] LABS: BILIRUBIN,TOTAL 0.8 mg/dL (0.2-1); TOT PROT 6.1 g/dl (6.4-8.2)
[2024-06-09 14:07] VITALS: BP 114/62; PULSE 81; TEMP 98.4
== END 2024-06-09 15:53 | disposition home or self-care (01) | DRG 392 ==
LOC: JER 23:56 → JERBED 06-02 02:39 → J5S 06-02 04:41
PROVIDERS: ADMIT Internal Medicine
PROC: 0DB68ZX Excision of Stomach, Via Natural or Artificial Opening Endoscopic, Diagnostic (ICD-10-PCS; principal; 2024-06-03 13:00)
DX: R11.2 Nausea with vomiting, unspecified (principal); J44.9 Chronic obstructive pulmonary disease, unspecified; I10 Essential (primary) hypertension; E03.9 Hypothyroidism, unspecified; K59.00 Constipation, unspecified; I25.10 Atherosclerotic heart disease of native coronary artery without angina pectoris; R94.31 Abnormal electrocardiogram [ECG] [EKG]; K44.9 Diaphragmatic hernia without obstruction or gangrene; R10.13 Epigastric pain
CPT/HCPCS: 36415; 70470-TC; 74018-TC-FY; 74177-TC; 74183-TC; 74240-TC-FY; 80048; 80053; 80076; 81003; 82248; 82550; 82962; 82977; 83497; 83690; 83735; 84100; 84110; 84132; 84484; 85025; 85027; 85610; 85730; 86850; 86900; 86901; 88305-TC; 88342-TC; 90656; 93005; 93010; 97116-GP; 97161-GP; 99285-25; G0008; J0131; J1644; Q9967

== ENCOUNTER 2024-06-22 05:16 | Inpatient (IN) | payer OTHER ==
[2024-06-22 05:22] VITALS: BMI 26.5
[2024-06-22 06:10] LABS: INR 1.04 (0.83-1.09)
[2024-06-22 06:12] LABS: ACTIVATED PTT 29.3 SECONDS (25.2-36.5)
[2024-06-22 06:17] LABS: BASO % 0.3 % (0-2.0); HEMATOCRIT 37.6 % (32.4-45.2); HEMOGLOBIN 11.9 GM/dL (10.7-15.3); LYMPH % 6.9 % (8-40); MCH 29.5 pg (25.7-33.7); MCHC 31.6 g/dl (32.0-36.0); MEAN CELL VOLUME 93.4 fl (80-96); MEAN PLT VOLUME 8.2 fl (7.5-11.1); MONO % 1.9 % (3.8-10.2); NEUT % 90.9 % (42.8-82.8); PLATELET COUNT 305 10^3/uL (134-434); RBC 4.03 M/mm3 (3.60-5.2); RDW 15.3 % (11.6-15.6); WHITE BLOOD COUNT 11.7 K/mm3 (4.0-10.0)
[2024-06-22 06:27] LABS: POTASSIUM 4.4 mmol/L (3.5-5.1)
[2024-06-22 06:29] LABS: CALCIUM 10.1 mg/dL (8.5-10.1)
[2024-06-22 06:30] LABS: BLOOD UREA NITROGEN 15.3 mg/dL (7-18)
[2024-06-22 06:33] LABS: CREATININE 0.7 mg/dL (0.55-1.3)
[2024-06-22 06:34] LABS: BILIRUBIN,TOTAL 1.2 mg/dL (0.2-1); TOT PROT 7.7 g/dl (6.4-8.2)
[2024-06-22] MEDS ORDERED: FAMOTIDINE 20 MG/50 ML IVPB 20 MG/50 ML MG IVPB ONE (06:35)
[2024-06-22] MEDS ORDERED: ACETAMINOPHEN INJECTION 100 ML ONE (06:35)
[2024-06-22] MEDS: ACETAMINOPHEN 1000 MG/100 ML BAG IVPB ONE (06:43)
[2024-06-22] MEDS: SODIUM CHLORIDE 1,000 ML IV STA (06:43)
[2024-06-22] MEDS: FAMOTIDINE 20 MG/50 ML IVPB 20 MG/50 ML MG IVPB ONE (06:47)
[2024-06-22] MEDS ORDERED: TRIMETHOBENZAMIDE HCL 200MG/2ML INJ IM ONE (06:51)
[2024-06-22] MEDS: TRIMETHOBENZAMIDE HCL 200MG/2ML INJ IM ONE (06:56)
[2024-06-22 07:03] LABS: ALBUMIN 3.9 g/dl (3.4-5.0)
[2024-06-22] MEDS ORDERED: morphine SULFATE 4 MG/ML VIAL ONE (07:18)
[2024-06-22] MEDS: morphine CARPU-JECT 4 MG/1 ML DISP.SYRIN IVPUSH ONE (07:26)
[2024-06-22 09:07] LABS: PH,URINE 8.5 (5.0-8.0); URINE APPEARANCE CLOUDY; URINE BILIRUBIN NEGATIVE (NEGATIVE); URINE COLOR YELLOW; URINE GLUCOSE (UA) NEGATIVE (NEGATIVE); URINE KETONE 2+ (NEGATIVE); URINE LEUK ESTERASE NEGATIVE (NEGATIVE); URINE NITRITE NEGATIVE (NEGATIVE); URINE PROTEIN TRACE (NEGATIVE); URINE UROBILINOGEN 0.2 mg/dL (0.2-1.0)
[2024-06-22] MEDS: ONDANSETRON 4 MG/2 ML VIAL IVPUSH ONE (09:40)
[2024-06-22] MEDS: LORazepam 2 MG/ML SDV VIAL IVPUSH ONE ×2 (10:07→12:20)
[2024-06-22] MEDS ORDERED: MORPHINE SULFATE 2 MG/ML SYRINGE ONE ×3 (10:23→19:41)
[2024-06-22] MEDS ORDERED: ONDANSETRON 4 MG/2 ML VIAL ONE (10:23)
[2024-06-22] MEDS: morphine CARPU-JECT 2 MG/1 ML DISP.SYRIN IVPUSH ONE (10:45)
[2024-06-22] MEDS: DEXTROSE 5%-NORMAL SALINE 1,000 ML IV ONE (10:46)
[2024-06-22] MEDS ORDERED: LORazepam 2 MG/ML SDV VIAL ONE (12:09)
[2024-06-22] MEDS: MORPHINE SULFATE 2 MG/ML SYRINGE IVPUSH PRN (16:35)
[2024-06-22] MEDS ORDERED: PROCHLORPERAZINE MALEATE 5 MG TABLET ONE (17:10)
[2024-06-22] MEDS: PROCHLORPERAZINE MALEATE 5 MG TABLET PO ONE (17:13)
[2024-06-22] MEDS: PANTOPRAZOLE SODIUM 40 MG VIAL IVPUSH SCH (23:04)
[2024-06-22] MEDS: FAMOTIDINE 20 MG/50 ML IVPB 20 MG/50 ML MG IVPB SCH (23:04)
[2024-06-23 09:39] LABS: HEMOGLOBIN 11.6 GM/dL (10.7-15.3); MCH 30.9 pg (25.7-33.7); MCHC 33.2 g/dl (32.0-36.0); MEAN CELL VOLUME 93.1 fl (80-96); MEAN PLT VOLUME 7.9 fl (7.5-11.1); PLATELET COUNT 272 10^3/uL (134-434); RBC 3.76 M/mm3 (3.60-5.2); RDW 15.7 % (11.6-15.6); WHITE BLOOD COUNT 9.2 K/mm3 (4.0-10.0)
[2024-06-23 09:53] LABS: POTASSIUM 3.5 mmol/L (3.5-5.1)
[2024-06-23 10:00] LABS: ALBUMIN 3.5 g/dl (3.4-5.0); CALCIUM 9.4 mg/dL (8.5-10.1)
[2024-06-23 10:01] LABS: BLOOD UREA NITROGEN 13.3 mg/dL (7-18)
[2024-06-23 10:03] LABS: CREATININE 0.7 mg/dL (0.55-1.3)
[2024-06-23 10:04] LABS: PHOSPHOROUS 2.9 mg/dL (2.5-4.9)
[2024-06-23 10:05] LABS: BILIRUBIN,TOTAL 1.3 mg/dL (0.2-1); TOT PROT 6.7 g/dl (6.4-8.2)
[2024-06-23] MEDS: DEXTROSE 5%-NORMAL SALINE 1,000 ML IV SCH (15:11)
[2024-06-25] MEDS: LEVOTHYROXINE NA 100 MCG TABLET (FP) PO SCH (06:13)
[2024-06-25 09:37] LABS: BASO % 0.6 % (0-2.0); EOS % 2.8 % (0-4.5); HEMATOCRIT 35.5 % (32.4-45.2); HEMOGLOBIN 11.8 GM/dL (10.7-15.3); LYMPH % 19.5 % (8-40); MCH 30.6 pg (25.7-33.7); MCHC 33.2 g/dl (32.0-36.0); MEAN PLT VOLUME 7.7 fl (7.5-11.1); NEUT % 69.1 % (42.8-82.8); PLATELET COUNT 255 10^3/uL (134-434); RBC 3.86 M/mm3 (3.60-5.2); RDW 14.8 % (11.6-15.6); WHITE BLOOD COUNT 6.6 K/mm3 (4.0-10.0)
[2024-06-25 10:10] LABS: POTASSIUM 3.8 mmol/L (3.5-5.1)
[2024-06-25 10:12] LABS: ALBUMIN 3.3 g/dl (3.4-5.0); BLOOD UREA NITROGEN 6.9 mg/dL (7-18); MAGNESIUM 1.8 mg/dL (1.8-2.4)
[2024-06-25 10:15] LABS: CREATININE 0.5 mg/dL (0.55-1.3)
[2024-06-25 10:17] LABS: BILIRUBIN,TOTAL 1.4 mg/dL (0.2-1); TOT PROT 6.4 g/dl (6.4-8.2)
[2024-06-25] MEDS ORDERED: ALBUTEROL SO4 HFA INHALER IH PRN (17:01)
[2024-06-25] MEDS: LACTATED RINGERS SOLUTION 1,000 ML/1,000 ML INFUS.BAG IV SCH (20:35)
[2024-06-25] MEDS: MULTIVITAMINS THER W-MINERALS COMBO TABLET (FP) PO SCH (20:35)
[2024-06-25] MEDS ORDERED: ZOLPIDEM TARTRATE 5 MG TABLET PO PRN (22:00)
[2024-06-25] MEDS: ROSUVASTATIN CA 20 MG TABLET PO SCH (22:26)
[2024-06-26] MEDS: ASPIRIN COATED 81 MG TABLET.EC PO SCH (09:56)
[2024-06-26 23:13] VITALS: RESP 18
[2024-06-27 09:02] LABS: BASO % 0.6 % (0-2.0); EOS % 2.2 % (0-4.5); HEMATOCRIT 37.6 % (32.4-45.2); HEMOGLOBIN 12.6 GM/dL (10.7-15.3); LYMPH % 11.9 % (8-40); MCH 30.6 pg (25.7-33.7); MCHC 33.5 g/dl (32.0-36.0); MEAN CELL VOLUME 91.4 fl (80-96); MEAN PLT VOLUME 7.8 fl (7.5-11.1); MONO % 5.2 % (3.8-10.2); NEUT % 80.1 % (42.8-82.8); PLATELET COUNT 277 10^3/uL (134-434); RBC 4.12 M/mm3 (3.60-5.2); RDW 14.7 % (11.6-15.6); WHITE BLOOD COUNT 11.6 K/mm3 (4.0-10.0)
[2024-06-27 09:27] LABS: POTASSIUM 3.6 mmol/L (3.5-5.1)
[2024-06-27 09:33] LABS: CALCIUM 9.5 mg/dL (8.5-10.1)
[2024-06-27 09:34] LABS: ALBUMIN 3.4 g/dl (3.4-5.0); BLOOD UREA NITROGEN 9.6 mg/dL (7-18); MAGNESIUM 1.7 mg/dL (1.8-2.4)
[2024-06-27 09:37] LABS: CREATININE 0.7 mg/dL (0.55-1.3)
[2024-06-27 09:38] LABS: BILIRUBIN,TOTAL 2.2 mg/dL (0.2-1); TOT PROT 6.7 g/dl (6.4-8.2)
[2024-06-27 10:36] VITALS: BP 128/60; PULSE 76; TEMP 97.7
[2024-06-27] MEDS: MAGNESIUM 2GM/50ML STERILE WATER IVPB IVPB ONE (11:14)
== END 2024-06-27 14:00 | disposition home or self-care (01) | DRG 392 ==
LOC: JER 05:16 → JERBED 12:14 → J7W 22:17
PROC: 0DJ08ZZ Inspection of Upper Intestinal Tract, Via Natural or Artificial Opening Endoscopic (ICD-10-PCS; principal; 2024-06-26 12:30)
DX: R11.2 Nausea with vomiting, unspecified (principal); R17 Unspecified jaundice; T39.015A Adverse effect of aspirin, initial encounter; E03.9 Hypothyroidism, unspecified; E78.00 Pure hypercholesterolemia, unspecified; J44.9 Chronic obstructive pulmonary disease, unspecified; K64.8 Other hemorrhoids; R10.13 Epigastric pain; K59.00 Constipation, unspecified; K21.9 Gastro-esophageal reflux disease without esophagitis; G47.00 Insomnia, unspecified; R94.31 Abnormal electrocardiogram [ECG] [EKG]; N28.1 Cyst of kidney, acquired; Z85.41 Personal history of malignant neoplasm of cervix uteri; R82.71 Bacteriuria; E80.6 Other disorders of bilirubin metabolism; K22.9 Disease of esophagus, unspecified
CPT/HCPCS: 0241U-QW; 36415; 71045-TC-FY; 71250-TC; 74177-TC; 80053; 81003; 82962; 83605; 83690; 83735; 84100; 84484; 85025; 85027; 85610; 85730; 86850; 86900; 86901; 87086; 87186; 93005; 93010; 93306-TC; 97116-GP; 97161-GP; 99285-25; J0131